=== PATIENT | male | born 2000 | race Caucasian/White ===

== ENCOUNTER 2022-07-28 08:59 | Day surgery (SDC) | payer OTHER ==
[~2022-07-28] VITALS: Ht 177.8 cm; Wt 70.3 kg
[2022-07-28] VITALS (13 sets, daily range): BP systolic 110–146; BP diastolic 67–94
--- NOTE | 2022-07-28 09:36 | ED EENT ---
History of Present Illness General Chief Complaint: Oral/Throat Problems Stated Complaint: SORE THROAT FOR 3 WEEKS Nursing Triage Note: ARRIVES FROM [facility] THIS AM WITH A C/O SORE THROAT FOR 3 WEEKS. PATIENT WAS SEEN AT [facility] THIS AM AND SENT OUT FOR FURTHER EVAUATION. LAB RESULTS AND ASSESMENT DOCUMENTATION WITH PATIENT. Source: patient Exam Limitations: no limitations History of Present Illness Date Seen by Provider: Jul 28, 2022 Time Seen by Provider: 09:34 Initial Comments Patient is a 21yo male who has been fighting a sore throat for about 3 weeks. He is a [employer] student and finally went to the [facility] on Thursday last week. Had blood work obtained and was started on Augmentin and steroids. He went back for follow up today and was sent to the ER for further eval. He denies fever, states he has pain in his right jaw and it "pops", very painful swallowing. He did vomit once last week, states it hurts very much to swallow. Denies any chronic medical conditions. Only past surgery was a hernia repair. No allergies. Non smoker. States he last ate 3 crackers between 730 and 8am with his meds this morning. Timing/Duration: gradual (3 weeks) Severity: severe Location: throat Prearrival Treatment: prescription meds, other (ibuprofen 2am (2 pills)) Associated Symptoms: facial pain/swelling (right jaw), sore throat, other (pain swallowing; trismus) Allergies and Home Medications Allergies Coded Allergies: No Known Drug Allergies (Unverified , 07/28/22) Patient Home Medication List Home Medication List Reviewed: Yes Review of Systems Review of Systems Constitutional: see HPI Eyes: No Symptoms Reported Ears: No Symptoms Reported Nose: no symptoms reported Mouth: other (can't open mouth very well) Throat: pain, swelling, muffled, painful swallowing, difficulty with fluids Respiratory: no symptoms reported Cardiovascular: no symptoms reported Gastrointestinal: vomiting (x1 4d ago) Skin: no symptoms reported All Other Systems Reviewed Negative Unless Noted: Yes Past Jvoylvv-[place]a Hx Patient Social History Tobacco Use?: No Use of E-Cig and/or Vaping dev: No Substance use?: No Alcohol Use?: No Pt feels they are or have been: No Immunizations Up To Date Influenza Vaccine Up-to-Date: No; Not Current First/Initial COVID19 Vaccinat: YES Second COVID19 Vaccination Teodoro: YES Third COVID19 Vaccination Date: YES Past Medical History Surgery/Hospitalization HX: DENIES MEDICAL HX, SX HX: LEFT INGUNIAL HERNIA Physical Exam Vital Signs Vital Signs - First Documented 07/28/22 09:10 Temp 36.2 Pulse 79 Resp 18 B/P (MAP) 132/85 (101) Pulse Ox 98 O2 Delivery Room Air Height, Weight, BMI Height: '" Weight: lbs. oz. kg; 22.00 BMI Method: General Appearance: WD/WN, no apparent distress Eyes: bilateral eye normal inspection, bilateral eye PERRL, bilateral eye EOMI, bilateral eye abnormal EOM Ears: bilateral ear auricle normal Mouth/Throat: pharynx tenderness; No tongue swollen, No tonsillar exudate; trismus (1-2cm), other (large right peritonsillar abscess with uvular deviation to the left) Neck: lymphadenopathy (R) (large and tender), lymphadenopathy (L) Cardiovascular: regular rate, rhythm Respiratory: lungs clear, normal breath sounds, no respiratory distress, no accessory muscle use Gastrointestinal: normal bowel sounds, non tender, soft Neurologic/Psychiatric: alert, normal mood/affect, oriented x 3 Skin: normal color, warm/dry Progress/Results/Core Measures Results/Orders Lab Results Laboratory Tests Test 07/28/22 09:22 07/28/22 10:00 07/29/22 05:00 07/29/22 05:05 Range/Units Influenza Type A (RT-PCR) Not Detected Not Detecte Influenza Type B (RT-PCR) Not Detected Not Detecte SARS-CoV-2 RNA (RT-PCR) Not Detected Not Detecte White Blood Count 15.3 H 13.2 H 4.3-11.0 10^3/uL Red Blood Count 5.09 4.69 4.30-5.52 10^6/uL Hemoglobin 15.4 14.4 13.3-17.7 g/dL Hematocrit 44 41 40-54 % Mean Corpuscular Volume 87 88 80-99 fL Mean Corpuscular Hemoglobin 30 31 25-34 pg Mean Corpuscular Hemoglobin Concent 35 35 32-36 g/dL Red Cell Distribution Width 12.2 12.0 10.0-14.5 % Platelet Count 245 249 130-400 10^3/uL Mean Platelet Volume 9.7 9.9 9.0-12.2 fL Immature Granulocyte % (Auto) 1 % Neutrophils (%) (Auto) 85 H 42-75 % Lymphocytes (%) (Auto) 7 L 12-44 % Monocytes (%) (Auto) 7 0-12 % Eosinophils (%) (Auto) 0 0-10 % Basophils (%) (Auto) 0 0-10 % Neutrophils # (Auto) 13.0 H 1.8-7.8 10^3/uL Lymphocytes # (Auto) 1.1 1.0-4.0 10^3/uL Monocytes # (Auto) 1.1 H 0.0-1.0 10^3/uL Eosinophils # (Auto) 0.0 0.0-0.3 10^3/uL Basophils # (Auto) 0.0 0.0-0.1 10^3/uL Immature Granulocyte # (Auto) 0.1 0.0-0.1 10^3/uL Neutrophils % (Manual) 84 % Lymphocytes % (Manual) 7 % Monocytes % (Manual) 9 % Blood Morphology Comment NORMAL Sodium Level 138 138 135-145 MMOL/L Potassium Level 3.7 4.3 3.6-5.0 MMOL/L Chloride Level 103 105 98-107 MMOL/L Carbon Dioxide Level 23 23 21-32 MMOL/L Anion Gap 12 10 5-14 MMOL/L Blood Urea Nitrogen 11 11 7-18 MG/DL Creatinine 0.80 0.79 0.60-1.30 MG/DL Estimat Glomerular Filtration Rate 128 129 BUN/Creatinine Ratio 14 14 Glucose Level 101 127 H 70-105 MG/DL Calcium Level 9.5 8.9 8.5-10.1 MG/DL My Orders Orders - PEARL RICHARDSON MD Covid 19 Inhouse Test (07/28/22 09:38) Influenza A And B By Pcr (07/28/22 09:38) Ed Iv/Invasive Line Start (07/28/22 09:48) Basic Metabolic Panel (07/28/22 09:48) Ct Neck (Soft Tissue) W (07/28/22 09:48) Ketorolac Injection (Toradol Injection) (07/28/22 10:00) Ondansetron Injection (Zofran Injectio (07/28/22 10:00) Ns Iv 1000 Ml (Sodium Chloride 0.9%) (07/28/22 09:48) Iohexol Injection (Omnipaque 350 Mg/Ml 1 (07/28/22 10:00) Ns (Ivpb) (Sodium Chloride 0.9% Ivpb Bag (07/28/22 10:00) Cbc With Automated Diff (07/28/22 11:05) Manual Differential (07/28/22 10:00) Ed Admission (Communication) (07/28/22 11:34) Medications Given in ED Vital Signs/I&O 07/28/22 07/28/22 07/28/22 07/29/22 19:35 20:00 23:48 03:28 Temp 36.6 36.7 36.8 Pulse 91 84 90 Resp 18 18 18 B/P (MAP) 129/78 (95) 110/69 (83) 113/71 (85) Pulse Ox 97 98 98 O2 Delivery Room Air Room Air Room Air Room Air O2 Flow Rate 0.00 0.00 0.00 0.00 Blood Pressure Mean: 101 Progress Progress Note : Time: 11:39 Progress Note Patient seen and evaluated by me. Eval today includes basic labs, CBC and BMP with CT neck with IV contrast. His exam is pertinent for dry mucous membranes, trismus and a very large right peritnosillar abscess with uvular deviation. Large right sided Cervical LAD. Heart is reg. lungs clear. benign abdomen. Exam most consistent with FIELD COLLECTOR, potential airway compromise. Labs reviewed, CBC shows leukocytosis, chem is normal. CT neck reveals large FIELD COLLECTOR on the right at greatest dimension 4.1cm. Case initially discussed with Yumi Griffith NP on for Dr Serna (ent). They will take to the OR. Will be admitted to hospitalist service - case discussed with Dr Mcpherson who will admit. Patient has received toradol and IVF here in the ER. resting comfortably and agreeable to the plan of care. Diagnostic Imaging Diagonstic Imaging: CT Comments [facility]. [place], [place] NAME: ROJAS ROBRETS [facility] REC#: [id number] PT STATUS: REG ER : 2000 PHYSICIAN: PEARL RICHARDSON MD ADMIT DATE: 07/28/22/ER Signed Date of Exam:07/28/22 CT NECK (SOFT TISSUE) W PROCEDURE: CT neck soft tissue with contrast. TECHNIQUE: Multiple contiguous axial images were obtained through the neck after the administration of contrast. Auto Exposure Controls were utilized during the CT exam to meet ALARA standards for radiation dose reduction. INDICATION: Right-sided neck pain. Swelling. Trismus. COMPARISON: None. FINDINGS: A fluid collection with peripheral enhancement is seen in the right peritonsillar and tonsillar region measuring 3.3 x 1.9 cm and 4.1 cm craniocaudal. This is causing mass effect on the airway at the level of the oropharynx without significant airway compromise. No evidence of prevertebral or retropharyngeal fluid collection. The laryngeal structures are symmetric and unremarkable. Reactive lymphadenopathy is seen in the neck with the largest in the right level 2 station measuring 1.8 cm in short axis. The parotid, submandibular, and thyroid glands are unremarkable. The vascular structures of the neck demonstrate no evidence of high-grade stenosis on this nondedicated exam. The visualized lung apices are clear. The visualized intracranial contents demonstrate no evidence of pathologic intracranial enhancement or intracranial mass effect. The visualized orbital contents are unremarkable. The visualized paranasal sinuses are clear. The mastoids and middle ears are clear. No acute osseous abnormality in the cervical spine. IMPRESSION: Right-sided tonsillar and peritonsillar abscess with associated bilateral cervical lymphadenopathy, right greater than left. There is mass effect on the airway without significant airway compromise. Recommend continued close followup. Dictated by: Dictated on workstation # [id number] Dict: 07/28/22 1026 Trans: 07/28/22 1043 [id number] Interpreted by: ERWIN VALENZUELA DO Electronically signed by: ERWIN VALENZUELA DO 07/28/22 1043 Departure Communication (Admissions) Time/Spoke to Admitting Phy: 11:[address] Mcpherson Time/Spoke to Consulting Phy: 10:58 discussed with Yumi Griffith NP for Dr Serna Impression Primary Impression: Peritonsillar abscess Disposition: ADMITTED INPATIENT Condition: Stable Admissions Decision to Admit Reason: Admit from ER (General) Decision to Admit/Date: Jul 28, 2022 Time/Decision to Admit Time: 11:35 PEARL RICHARDSON MD Jul 28, 2022 09:35
[2022-07-28] MEDS ORDERED: NS IV 1000 ML 1,000 ML IV STA (09:48)
[2022-07-28] MEDS ORDERED: IOHEXOL 350 MG/ML 100 ML (OMNIPAQUE 350) VIAL IV ONE (10:00)
[2022-07-28] MEDS ORDERED: ONDANSETRON 4 MG/2 ML (SDV) Z0FRAN IVP ONE (10:00)
[2022-07-28] MEDS ORDERED: NS 100 ML (IVPB) BAG IV ONE (10:00)
[2022-07-28] MEDS ORDERED: KETOROLAC 15 MG/ML VIAL IVP ONE (10:00)
[2022-07-28 10:19] LABS: POTASSIUM 3.7 MMOL/L (3.6-5.0)
[2022-07-28 10:20] LABS: CALCIUM 9.5 MG/DL (8.5-10.1)
[2022-07-28 10:24] LABS: CREATININE SERUM 0.8 MG/DL (0.60-1.30)
--- NOTE | 2022-07-28 10:39 | Diagnostic Imaging Report ---
PROCEDURE: CT neck soft tissue with contrast. TECHNIQUE: Multiple contiguous axial images were obtained through the neck after the administration of contrast. Auto Exposure Controls were utilized during the CT exam to meet ALARA standards for radiation dose reduction. INDICATION: Right-sided neck pain. Swelling. Trismus. COMPARISON: None. FINDINGS: A fluid collection with peripheral enhancement is seen in the right peritonsillar and tonsillar region measuring 3.3 x 1.9 cm and 4.1 cm craniocaudal. This is causing mass effect on the airway at the level of the oropharynx without significant airway compromise. No evidence of prevertebral or retropharyngeal fluid collection. The laryngeal structures are symmetric and unremarkable. Reactive lymphadenopathy is seen in the neck with the largest in the right level 2 station measuring 1.8 cm in short axis. The parotid, submandibular, and thyroid glands are unremarkable. The vascular structures of the neck demonstrate no evidence of high-grade stenosis on this nondedicated exam. The visualized lung apices are clear. The visualized intracranial contents demonstrate no evidence of pathologic intracranial enhancement or intracranial mass effect. The visualized orbital contents are unremarkable. The visualized paranasal sinuses are clear. The mastoids and middle ears are clear. No acute osseous abnormality in the cervical spine. IMPRESSION: Right-sided tonsillar and peritonsillar abscess with associated bilateral cervical lymphadenopathy, right greater than left. There is mass effect on the airway without significant airway compromise. Recommend continued close followup. Dictated by: Dictated on workstation # [id number]
[2022-07-28 11:12] LABS: BASOPHILS % (AUTO) 0 % (0-10); EOSINOPHILS % (AUTO) 0 % (0-10); HEMATOCRIT 44 % (40-54); HEMOGLOBIN 15.4 g/dL (13.3-17.7); LYMPHOCYTES # (AUTO) 1.1 10^3/uL (1.0-4.0); LYMPHOCYTES % (AUTO) 7 % (12-44); MEAN CORPUSCULAR HEMOGLOBIN 30 pg (25-34); MEAN CORPUSCULAR HGB CONC 35 g/dL (32-36); MEAN CORPUSCULAR VOLUME 87 fL (80-99); MEAN PLATELET VOLUME 9.7 fL (9.0-12.2); MONOCYTES # (AUTO) 1.1 10^3/uL (0.0-1.0); MONOCYTES % (AUTO) 7 % (0-12); NEUTROPHILS % (AUTO) 85 % (42-75); PLATELET COUNT 245 10^3/uL (130-400); WHITE BLOOD COUNT 15.3 10^3/uL (4.3-11.0)
[2022-07-28] MEDS ORDERED: ROCURONIUM 50 MG/5 ML (ZEMURON) VIAL IV ONE (11:35)
[2022-07-28] MEDS ORDERED: LIDOCAINE PF 2% 5 ML (XYLOCAINE) VIAL ONE (11:35)
[2022-07-28] MEDS ORDERED: proPOfol 200 MG/20 ML (DIPRIVAN) VIAL IV ONE (11:35)
[2022-07-28] MEDS ORDERED: fentaNYL INJ 100 MCG/2 ML AMP ONE (11:35)
[2022-07-28] MEDS ORDERED: MIDAZOLAM 2 MG/2 ML (VERSED) VIAL ONE (11:35)
[2022-07-28] MEDS ORDERED: SUCCINYLCHOLINE INJ 20 MG/1 ML 10 ML VIAL ONE (11:35)
--- NOTE | 2022-07-28 11:52 | History & Physical-Hospitalist ---
History of Present Illness HPI/Chief Complaint Pt is a 21yoCM with no past medical history who presented to the ER due to sore throat. He reports he has had a sore throat for 3 weeks. He was seen at the [facility] last week and started on antibiotics and prednisone. Despite this his ymptoms worsened and he was seen there again torobyn and referred to the ER. CT was done and revealed a 4cm abscess. He complained of right jaw pain but it is much improved now. Source: patient Date Seen 07/28/22 Time Seen by a Provider: 11:46 Attending Physician Ctr[facility] [facility] At [facility] PCP Admitting Physician: Attending Physician: Referring Physician Date of Admission Home Medications & Allergies Home Medications Reviewed patient Home Medication Reconciliation performed by pharmacy medication reconciliations field service technician poultry and/or nursing. Patients Allergies have been reviewed. Allergies Allergies Coded Allergies No Known Drug Allergies (Unverified07/28/22) Past Onjstnq-Hfhnzk-Miavro Hx Patient Social History Employed/Student: student, full-time Tobacco Use?: No Use of E-Cig and/or Vaping dev: No Substance use?: No Alcohol Use?: No Pt feels they are or have been: No Immunizations Up To Date First/Initial COVID19 Vaccinat: YES Second COVID19 Vaccination Teodoro: YES Current Status Advance Directives: No Communicates: Verbally Primary Language: Hungarian Preferred Spoken Language: Hungarian Implanted or Applied Medical D: None Family Medical History Reviewed Nursing Family Hx No Pertinent Family Hx Review of Systems Constitutional: see HPI Physical Exam Physical Exam Vital Signs Vital Signs - First Documented 07/28/22 09:10 Temp 36.2 Pulse 79 Resp 18 B/P (MAP) 132/85 (101) Pulse Ox 98 O2 Delivery Room Air Capillary Refill : Less Than 3 Seconds Height, Weight, BMI Height: '" Weight: lbs. oz. kg; 22.00 BMI Method: General Appearance: No Apparent Distress, WD/WN, Thin HEENT: PERRL/EOMI, Moist Mucous Membranes, Pharyngeal Erythema, Other (difficulty opening mouth) Neck: Non Tender, Lymphadenopathy (R) Respiratory: Lungs Clear, No Accessory Muscle Use, No Respiratory Distress Cardiovascular: Regular Rate, Rhythm, No Murmur Gastrointestinal: Normal Bowel Sounds, Soft Neurologic/Psychiatric: Alert, Oriented x3 Results Results/Procedures Labs Laboratory Tests 07/28/22 10:00 Patient resulted labs reviewed. Imaging: Reviewed Imaging Report Imaging [facility]. [place], [place] NAME: ROJAS ROBERTS [facility] REC#: [id number] PT STATUS: REG ER : 2000 PHYSICIAN: PEARL RICHARDSON MD ADMIT DATE: 07/28/22/ER Signed Date of Exam:07/28/22 CT NECK (SOFT TISSUE) W PROCEDURE: CT neck soft tissue with contrast. TECHNIQUE: Multiple contiguous axial images were obtained through the neck after the administration of contrast. Auto Exposure Controls were utilized during the CT exam to meet ALARA standards for radiation dose reduction. INDICATION: Right-sided neck pain. Swelling. Trismus. COMPARISON: None. FINDINGS: A fluid collection with peripheral enhancement is seen in the right peritonsillar and tonsillar region measuring 3.3 x 1.9 cm and 4.1 cm craniocaudal. This is causing mass effect on the airway at the level of the oropharynx without significant airway compromise. No evidence of prevertebral or retropharyngeal fluid collection. The laryngeal structures are symmetric and unremarkable. Reactive lymphadenopathy is seen in the neck with the largest in the right level 2 station measuring 1.8 cm in short axis. The parotid, submandibular, and thyroid glands are unremarkable. The vascular structures of the neck demonstrate no evidence of high-grade stenosis on this nondedicated exam. The visualized lung apices are clear. The visualized intracranial contents demonstrate no evidence of pathologic intracranial enhancement or intracranial mass effect. The visualized orbital contents are unremarkable. The visualized paranasal sinuses are clear. The mastoids and middle ears are clear. No acute osseous abnormality in the cervical spine. IMPRESSION: Right-sided tonsillar and peritonsillar abscess with associated bilateral cervical lymphadenopathy, right greater than left. There is mass effect on the airway without significant airway compromise. Recommend continued close followup. Dictated by: Dictated on workstation # [id number] Dict: 07/28/22 1026 Trans: 07/28/22 1043 [id number] Interpreted by: ERWIN VALENZUELA DO Electronically signed by: ERWIN VALENZUELA DO 07/28/22 1043 Assessment/Plan Admission Diagnosis Peritonsillar abscess Admission Status: Observation Assessment and Plan peritonsillar abscess Dr Serna consulted and had just seen Discussed with him, plan for decadron , iv abx, and OR today at 5pm Admit to med/surg for observation Toradol for pain Diagnosis/Problems Diagnosis/Problems (1) Peritonsillar abscess Status: Acute FAWAD MONTANO MD Jul 28, 2022 11:52
[2022-07-28 12:02] LABS: LYMPHOCYTES % (MANUAL) 7 %; MONOCYTES % (MANUAL) 9 %; NEUTROPHILS % (MANUAL) 84 %; RBC MORPH NORMAL
[2022-07-28] MEDS ORDERED: ONDANSETRON 4 MG/2 ML (SDV) Z0FRAN IV PRN (12:45)
[2022-07-28] MEDS ORDERED: ACETAMINOPHEN 325 MG TABLET PO PRN (12:45)
[2022-07-28] MEDS: NS IV 1000 ML 1,000 ML IV SCH ×2 (13:21→21:15)
[2022-07-28] MEDS: CEFUROXIME 1,500 MG/NS 50 ML IVPB IV SCH ×4 (13:58→21:15)
[2022-07-28] MEDS ORDERED: KETOROLAC 15 MG/ML VIAL IVP PRN (15:00)
[2022-07-28] MEDS ORDERED: LIDOCAINE/EPI 1%-1:100,000 (XYLOCAINE) 20ML ONE (15:15)
[2022-07-28] MEDS: LACTATED RINGERS 1,000 ML IV PRN ×2 (16:45→18:28)
--- NOTE | 2022-07-28 16:59 | Progress Note-Pre Operative ---
Pre-Operative Progress Note Date of Available H&P: Jul 28, 2022 Date H&P Reviewed: Jul 28, 2022 Time H&P Reviewed: 16:30 History & Physical: H&P Reviewed, Patient Examed Changes from last HP none Pre-Operative Diagnosis: Right Peritonsillar Abscess CARMELA SCHAEFER MD Jul 28, 2022 16:59
[2022-07-28] MEDS ORDERED: LIDOCAINE/EPI 1%-1:100,000 (XYLOCAINE) 20ML INJ ONE (17:08)
[2022-07-28] MEDS ORDERED: ONDANSETRON 4 MG/2 ML (SDV) Z0FRAN ONE (17:15)
--- NOTE | 2022-07-28 17:23 | Progress Note-Post Operative ---
Post-Operative Progess Note Surgeon (s)/Operations Assistant (s) Surgeon CARMELA SCHAEFER MD Operations Assistant n/a Pre-Operative Diagnosis Right Peritonsillar Abscess Post-Operative Diagnosis same Post-Op Procedure Note Date of Procedure: Jul 28, 2022 Name of Procedure Performed: I/D Right PEritonsillar Abscess Description & Findings Description and Findings: n/a Anesthesia Type get Estimated Blood Loss minimal Packing none. Specimen(s) collected/removed none CARMELA SCHAEFER MD Jul 28, 2022 17:23
[2022-07-28] MEDS ORDERED: SEVOFLURANE (ULTANE) 15 ML INHAL SOLN ONE (17:26)
[2022-07-28] MEDS ORDERED: morphine INJ 10 MG/ML 1ML (SYR OR VIAL) IVP ONE (18:00)
[2022-07-28] MEDS ORDERED: morphine INJ 10 MG/ML 1ML (SYR OR VIAL) ONE (18:01)
[2022-07-28] MEDS ORDERED: MEPERIDINE (DEMEROL) INJ 50 MG/ML IVP ONE (18:15)
[2022-07-28] MEDS ORDERED: PROMETHAZINE INJ 25 MG/ML (PHENERGAN) AMP IVP ONE (18:15)
[2022-07-28] MEDS ORDERED: HYDROmorphone 2 MG/ML VIAL (DILAUDID) IV ONE (18:15)
[2022-07-28] MEDS ORDERED: ONDANSETRON 4 MG/2 ML (SDV) Z0FRAN IVP PRN (18:15)
[2022-07-29 03:28] VITALS: BP 113/71
[2022-07-29] MEDS: NS IV 1000 ML 1,000 ML IV SCH (04:48)
[2022-07-29] MEDS: CEFUROXIME 1,500 MG/NS 50 ML IVPB IV SCH ×2 (04:50)
[2022-07-29 06:12] LABS: HEMATOCRIT 41 % (40-54); HEMOGLOBIN 14.4 g/dL (13.3-17.7); MEAN CORPUSCULAR HEMOGLOBIN 31 pg (25-34); MEAN CORPUSCULAR HGB CONC 35 g/dL (32-36); MEAN CORPUSCULAR VOLUME 88 fL (80-99); MEAN PLATELET VOLUME 9.9 fL (9.0-12.2); PLATELET COUNT 249 10^3/uL (130-400); WHITE BLOOD COUNT 13.2 10^3/uL (4.3-11.0)
[2022-07-29 06:14] LABS: POTASSIUM 4.3 MMOL/L (3.6-5.0)
[2022-07-29 06:15] LABS: CALCIUM 8.9 MG/DL (8.5-10.1)
[2022-07-29 06:19] LABS: CREATININE SERUM 0.79 MG/DL (0.60-1.30)
[2022-07-29 07:21] VITALS: BP 122/63
--- NOTE | 2022-07-29 07:44 | Anesthesia-General Post-Op ---
General Patient Condition Mental Status/LOC: Same as Preop Cardiovascular: Satisfactory Nausea/Vomiting: Absent Respiratory: Satisfactory Pain: Controlled Complications: Absent Post Op Complications Complications None Follow Up Care/Instructions Patient Instructions None needed. Anesthesia/Patient Condition Patient Condition Patient is doing well, no complaints, stable vital signs, no apparent adverse anesthesia problems. No complications reported per nursing. D/[place] [facility] [place]: Yes NEHAL BRITT CRNA Jul 29, 2022 07:44
--- NOTE | 2022-07-29 09:44 | Discharge Inst-Simple/Standard ---
Discharge Inst-Standard Discharge Medications New, Converted or Re-Newed RX: Transmitted to Pharmacy Patient Instructions/Follow Up Plan of Care/Instructions/FU: Please continue to take your medications as written. Please follow up with your primary care doctor to follow up this hospital stay. Activity as Tolerated: Yes Discharge Diet: No Restrictions Return to The Hospital For: Chest pain, shortness of breath, fever, weakness, if you feel you are getting worse. FAWAD MONTANO MD Jul 29, 2022 09:44
--- NOTE | 2022-07-29 09:51 | Discharge Summary ---
Diagnosis/Chief Complaint Date of Admission Jul 28, 2022 at 12:17 Date of Discharge Discharge Date: Jul 29, 2022 Admission Diagnosis Peritonsillar abscess [facility] [facility] Discharge Diagnosis (1) Peritonsillar abscess Status: Acute Discharge Summary Discharge Physical Exam Allergies: Coded Allergies: No Known Drug Allergies (Unverified , 07/28/22) Vitals & I&Os Vital Signs Date Time Temp Pulse Resp B/P (MAP) Pulse Ox O2 Delivery O2 Flow Rate FiO2 07/29/22 08:00 98 Room Air 0.00 07/29/22 07:21 36.5 97 18 122/63 (82) General Appearance: No Apparent Distress, WD/WN Respiratory: Lungs Clear, No Respiratory Distress Cardiovascular: Regular Rate, Rhythm, No Murmur Neurologic/Psychiatric: Alert, Oriented x3 Hospital Course Labs (last 24 hrs) Laboratory Tests 07/28/22 10:00: White Blood Count 15.3H, Red Blood Count 5.09, Hemoglobin 15.4, Hematocrit 44, Mean Corpuscular Volume 87, Mean Corpuscular Hemoglobin 30, Mean Corpuscular Hemoglobin Concent 35, Red Cell Distribution Width 12.2, Platelet Count 245, Mean Platelet Volume 9.7, Immature Granulocyte % (Auto) 1, Neutrophils (%) (Auto) 85H, Lymphocytes (%) (Auto) 7L, Monocytes (%) (Auto) 7, Eosinophils (%) (Auto) 0, Basophils (%) (Auto) 0, Neutrophils # (Auto) 13.0H, Lymphocytes # (Auto) 1.1, Monocytes # (Auto) 1.1H, Eosinophils # (Auto) 0.0, Basophils # (Auto) 0.0, Immature Granulocyte # (Auto) 0.1, Neutrophils % (Manual) 84, Lymphocytes % (Manual) 7, Monocytes % (Manual) 9, Blood Morphology Comment NORMAL, Sodium Level 138, Potassium Level 3.7, Chloride Level 103, Carbon Dioxide Level 23, Anion Gap 12, Blood Urea Nitrogen 11, Creatinine 0.80, Estimat Glomerular Filtration Rate 128, BUN/Creatinine Ratio 14, Glucose Level 101, Calcium Level 9.5 07/29/22 05:00: Sodium Level 138, Potassium Level 4.3, Chloride Level 105, Carbon Dioxide Level 23, Anion Gap 10, Blood Urea Nitrogen 11, Creatinine 0.79, Estimat Glomerular Filtration Rate 129, BUN/Creatinine Ratio 14, Glucose Level 127H, Calcium Level 8.9 07/29/22 05:05: White Blood Count 13.2H, Red Blood Count 4.69, Hemoglobin 14.4, Hematocrit 41, Mean Corpuscular Volume 88, Mean Corpuscular Hemoglobin 31, Mean Corpuscular Hemoglobin Concent 35, Red Cell Distribution Width 12.0, Platelet Count 249, Mean Platelet Volume 9.9 Patient resulted labs reviewed. Pending Labs Laboratory Tests 07/29/22 05:00: Sodium Level 138, Potassium Level 4.3, Chloride Level 105, Carbon Dioxide Level 23, Anion Gap 10, Blood Urea Nitrogen 11, Creatinine 0.79, Estimat Glomerular Filtration Rate 129, BUN/Creatinine Ratio 14, Glucose Level 127, Calcium Level 8.9 07/29/22 05:05: White Blood Count 13.2, Red Blood Count 4.69, Hemoglobin 14.4, Hematocrit 41, Mean Corpuscular Volume 88, Mean Corpuscular Hemoglobin 31, Mean Corpuscular Hemoglobin Concent 35, Red Cell Distribution Width 12.0, Platelet Count 249, Mean Platelet Volume 9.9 Imaging: Reviewed Imaging Report Discussion & Recommendations Discharge Planning: <30 minutes discharge planning Discharge Instructions to patient/family Please see electronic discharge instructions given to patient. FAWAD MONTANO MD Jul 29, 2022 09:51
[2022-07-29] MEDS ORDERED: CATHETER FLUSH 10 ML SYR IVP PRN (10:30)
[2022-07-29 12:00] VITALS: BP 122/63
--- NOTE | 2022-07-30 17:07 | OPERATIVE REPORT ---
DATE OF SERVICE: 07/28/2022 SERVICE: ENT. SURGEON: Carmela Serna MD ANESTHESIA: General endotracheal. PREOPERATIVE DIAGNOSIS: Right peritonsillar abscess. POSTOPERATIVE DIAGNOSIS: Right peritonsillar abscess. PROCEDURE: Incision and drainage of right peritonsillar abscess. DESCRIPTION OF PROCEDURE: The patient was brought to the operating room. The procedure and his identity were verified. General endotracheal anesthesia was then induced. Mouth exposure was gained with a McIvor retractor. The right peritonsillar region was markedly swollen. 3 mL of 1% Xylocaine with 1:100,000 epinephrine was injected into the planned incision site just superior to the tonsil. A 3 cm incision was made with a protected 11 blade. He had mild bleeding. Pus was liberated and suctioned out. Using a tonsil clamp, the entire abscess cavity was opened down to the level of the inferior portion of the tonsil. The area was then copiously irrigated. Bleeding and the oozing stopped. He was observed and no further pus or bleeding was noted. He was then awakened, extubated, and taken to the recovery room in stable condition. Blood loss at the time of surgery was less than 50 mL. DocumentID: [id number] Dictated Date: 07/29/2022 05:17:02 Data Modeler Date: 07/29/2022 09:08:00 Dictated By: CARMELA SERNA MD
--- NOTE | 2022-07-30 17:08 | HISTORY AND PHYSICAL ---
DATE OF SERVICE: 07/28/2022 EMERGENCY ROOM NOTE AND HISTORY AND PHYSICAL COMBINATION REASON FOR VISIT: Severe right-sided sore throat. HISTORY OF PRESENT ILLNESS: The patient is a 18-year-old male who is a Ph.D. student. He presented to the ER, unable to swallow. A subsequent workup and CT scan showed a 4 cm right peritonsillar abscess. He reports he has had symptoms for the past 4 weeks. They have progressively worsened over the past 3 or 4 days. He has difficulty opening his mouth and difficulty swallowing. PAST HISTORY: Unremarkable. ALLERGIES: PEANUTS. MEDICATIONS: He has been on antibiotics and steroids as an outpatient. SOCIAL HISTORY: He is currently living in a dorm at [facility]. He is here as an exchange student from [employer]. REVIEW OF SYSTEMS: The patient reports he is healthy otherwise. PHYSICAL EXAMINATION: GENERAL: He was in mild amount of distress. Communication, speech and voice were normal. He was breathing without difficulty. FACE: He has mild swelling in the right neck region. EARS: Canals were normal. Tympanic membranes were intact and mobile. NOSE: Normal nasal mucosa. No masses or lesions seen. The oral cavity showed a moderate amount of trismus. He has marked swelling of the right peritonsillar region. NECK: He had mild swelling in the right tonsillar region. IMPRESSION: Large right peritonsillar abscess. RECOMMENDATIONS: Findings were discussed with the patient. He will need incision and drainage in the operating room to protect his airway as well as for access given his trismus. He will be admitted to the floor for IV steroids and antibiotics and subsequently have surgery later today. He will remain n.p.o. He last ate some crackers around 7 this morning. Job ID: [id number] DocumentID: [id number] Dictated Date: 07/29/2022 05:17:02 Tar Distributor Operator Date: 07/29/2022 08:31:00 Dictated By: CARMELA SCHAEFER MD
== END 2022-07-29 12:00 | disposition home or self-care (01) ==
LOC: ER 09:04 → 4TH 12:17 → SDC 12:17 → UNDOADMOB 12:17 → SDC 07-29 12:00 → UNDODISOB 07-29 12:00
PROVIDERS: ATTEND Family Medicine
DX: J36 Peritonsillar abscess (principal)
CPT/HCPCS: 36415; 70491; 80048; 85007; 85027; 87636; 96375; 96376